=== PATIENT | male | born 1960 | race Two or more races ===

== ENCOUNTER 2023-04-30 16:44 | Observation (INO) ==
[2023-04-30] MEDS ORDERED: NS 1,000 ML IV 1,000 ML IV ONE (16:51)
--- NOTE | 2023-04-30 17:01 | DR.EXTPAIN ---
HPI Time seen Time Seen by Provider: 04/30/23 16:51 Complaint/Symptoms Chief Complaint Doctor Comments: 62-year-old male brought in for evaluation. Patient stopped at the gas station around the corner, tripped coming out and fell, hitting the back of his head. Bled initially scalp, has since stopped. Patient denies loss of consciousness. He does have a headache. He denies any neck pain or other injuries. Patient is not on blood thinning medication. Denies recent illness. Admits to drinking EtOH. Chief Complaint:: patient states he was coming out of [place] [employer] and he tripped over the concrete and hit his head. patient states he drunk x2 16oz beer about a hour ago. patient denies any pain at this time. COVID-19 Coronavirus risk:travel/contact w/high risk person: No Has patient experienced Coronavirus symptoms: No Nurses notes reviewed Nurses Notes Review: Yes Source History Provided: Patient and EMS Mode of arrival Mode of Arrival: Stretcher Timing Onset of Chief Complaint: 04/30/23 PMH PMH Past Medical History: No Past Surgical History: Yes Surgical History: Ortho Surgery Past Surgical History Comment: back Family History History of Family Medical Conditions: No Social History Does patient currently use any type of tobacco product: Yes Have you used tobacco products in the last 12 months: Yes Type of Tobacco Use: Cigarettes Does any household member use tobacco: Yes Alcohol Use: None Do you use any recreational Drugs:: No Lives With: Family Lives Where: Home Travel Risk Coronavirus risk:travel/contact w/high risk person: No Has patient experienced Coronavirus symptoms: No Infectious screening In the last 2 months have you had wt loss of >10#?: NO Have you had fever, night sweats or hemotysis?: No Have you traveled outside the country in the last 6 months?: No Isolation: Standard ROS Review of Systems Constitutional: No Symptoms Reported Eyes: No Symptoms Reported ENTM: No Symptoms Reported Respiratoy: No Symptoms Reported Cardiovascular: No Symptoms Reported Gastrointestinal/Abdominal: No Symptoms Reported Genitourinary: No Symptoms Reported Neurological: Headache Musculoskeletal: No Symptoms Reported Integumentary: No Symptoms Reported All Other Systems: Reviewed and Negative PE Vital Signs Vitals: Vital Signs Temperature 97.8 F Pulse Rate 112 Respiratory Rate 20 Blood Pressure 182/96 O2 Sat by Pulse Oximetry 99 General General Appearance: Alert and In No Apparent Distress Eyes Eye exam: PERRL and EOMI ENT ENT Exam: Mucous Membranes Moist Neck Neck Exam: Other (C-collar open, no point tenderness, c-collar reapplied) Respiratory Respiratory Exam: Normal Lung Sounds Bilat; negative Accessory Muscle Use or Respiratory Distress Cardiovascular Cardiovascular Exam: Regular Rate, Normal Rhythm and Normal Heart Sounds Abdominal Exam Abdominal Exam: Soft; negative Tenderness Extremities Extremities Exam: Normal Inspection and Full ROM; negative Edema Neurological Neurological Exam: Alert, Oriented X3 and CN II-XII Intact; negative Motor Sensory Deficit Skin Skin Exam: Warm and Dry COURSE Treatment Treatment: 62-year-old male brought in by EMS after falling at a local gas station and hitting the back of his head. Patient denies loss of conscious. Blood alcohol in the field reportedly 248. IV fluids given, will check baseline labs. Patient sent to CT for CTs of the head and cervical spine. 1836 -CTs of the head and neck acceptable. Patient without other injuries. Blood work obtained, shows he has an alcohol level of 323.. Chemistries show low sodium at 115. Does have an elevated AST of 117, ALT of 96. Patient deserves admission for his hyponatremia. We will add a chest x-ray to rule out intrathoracic abnormality. Discussed with Dr. Morales, on-call for the [facility], accepts an observation admission to further treat his hyponatremia and intoxication. ROR Labs Reviewed Laboratory Results Reviewed?: Yes 04/30/23 17:00 04/30/23 17:00 Laboratory: WBC 6.9 X10^3/uL (3.6-10.0) 04/30/23 17:00 RBC 4.19 X10^6/uL (4.7-6.0) L 04/30/23 17:00 Hgb 13.5 g/dL (13.5-18.0) 04/30/23 17:00 Hct 39.4 % (42.0-54.0) L 04/30/23 17:00 MCV 94.0 fL (80.0-100.0) 04/30/23 17:00 MCH 32.1 pg (27.0-34.0) 04/30/23 17:00 MCHC 34.2 g/dL (33.0-35.0) 04/30/23 17:00 RDW 12.9 % (11.6-16.5) 04/30/23 17:00 Plt Count 162 X10^3/uL (150.0-450.0) 04/30/23 17:00 MPV 6.0 fL (7.4-11.0) L 04/30/23 17:00 Neut % (Auto) 81.5 % (42.0-75.0) H 04/30/23 17:00 Lymph % (Auto) 10.8 % (21.0-51.0) L 04/30/23 17:00 [place] % (Auto) 6.6 % (0.0-13.0) 04/30/23 17:00 Eos % (Auto) 0.5 % (0.9-2.9) L 04/30/23 17:00 Baso % (Auto) 0.6 % (0.2-1.0) 04/30/23 17:00 Neut # (Auto) 5.6 x10^3/uL (2.2-4.8) H 04/30/23 17:00 Lymph # (Auto) 0.7 X10^3/uL (1.3-2.9) L 04/30/23 17:00 [place] # (Auto) 0.5 x10^3/uL (0.3-0.8) 04/30/23 17:00 Eos # (Auto) 0.0 x10^3/uL (0.0-0.2) 04/30/23 17:00 Baso # (Auto) 0.0 X10^3/uL (0.0-0.1) 04/30/23 17:00 Absolute Nucleated RBC 0.1 /100WBC 04/30/23 17:00 Sodium 115 mmol/L (136-145) L* 04/30/23 17:00 Corrected Sodium TNP 04/30/23 17:00 Potassium 3.2 mmol/L (3.5-5.1) L 04/30/23 17:00 Chloride 78 mmol/L (98-107) L* 04/30/23 17:00 Carbon Dioxide 23.2 mmol/L (21-32) 04/30/23 17:00 BUN 2 mg/dL (7-18) L 04/30/23 17:00 Creatinine 0.50 mg/dL (0.70-1.30) L 04/30/23 17:00 Est GFR (MDRD) Af Amer > 60 (>60) 04/30/23 17:00 Est GFR (MDRD) Non-Af > 60 (>60) 04/30/23 17:00 Glucose 94 mg/dL (65-99) 04/30/23 17:00 Calcium 7.6 mg/dL (8.5-10.1) L 04/30/23 17:00 Corrected Calcium TNP 04/30/23 17:00 Total Bilirubin 0.60 mg/dL (0.2-1.0) 04/30/23 17:00 AST 117 Units/L (15-37) H 04/30/23 17:00 ALT 98 Units/L (12-78) H 04/30/23 17:00 Alkaline Phosphatase 124 Units/L (46-116) H 04/30/23 17:00 Total Protein 6.6 g/dL (6.4-8.2) 04/30/23 17:00 Albumin 3.5 g/dL (3.4-5.0) 04/30/23 17:00 Globulin 3.1 g/dL (2.5-4.5) 04/30/23 17:00 Albumin/Globulin Ratio 1.1 Ratio (1.1-2.1) 04/30/23 17:00 Lipase 60 Units/L (16-77) 04/30/23 17:00 Ethyl Alcohol mg/dL 323 mg/dL (0-19.9) H 04/30/23 17:00 XRAY XRAY Interpreted by: Both X-ray Results: EXAM: CERVICAL SPINE W/O CON HISTORY: patient states he was coming out of [place] and he tripped over the concrete and hit his head. patient states he drunk x2 16oz beer about a hour ago. patient denies any pain at this time.; COMPARISON: None. TECHNIQUE: Axial non-contrast images of the cervical spine with coronal and sagittal reformats. Radiation dose: 335.91 mGy-cm total DLP FINDINGS: Vertebral body heights are maintained with normal alignment. Mild degenerative disc and joint changes. No fracture identified. Posterior elements are intact without jumped or perched facets. Prevertebral soft tissues are normal. Atlantoaxial articulation is intact. Soft tissues are unremarkable. Lung apices are unremarkable. IMPRESSION: No imaging findings of acute traumatic cervical spine injury. THIS IS AN ELECTRONICALLY VERIFIED FINAL REPORT 04/30/2023 6:17 PM - Electronically signed by Derick Amaya MD EXAM: HEAD CT WITHOUT INTRAVENOUS CONTRAST HISTORY: Traumatic fall and head injury. TECHNIQUE: Spiral axial CT images are obtained through the brain without the a dministration of intravenous contrast. Sagittal and coronal reformatted images are reconstructed. DOSIMETRY: Total DLP 983.34 mGycm; CTDI 48 mGy COMPARISON: None available. FINDINGS: There is mild diffuse cerebral cortical atrophy. The centrum semiovale, basal ganglia, cerebellum, and brainstem are otherwise grossly unremarkable for a noncontrast CT scan. There is no acute intracranial hemorrhage, discernible acute infarction, mass lesion, midline shift, or hydrocephalus seen. No extra-axial mass or abnormal fluid collection is seen. The calvarium is intact. There is partial fluid opacification of the right mastoid air cells in keeping with acute or chronic mastoiditis. The partially imaged paranasal sinuses, middle ear cavities, and left mastoid air cells are clear. IMPRESSION: 1. No skull fracture, intracranial hemorrhage, discernible acute infarction, mass lesions, midline shift, mass effect or hydrocephalus seen. 2. Mild diffuse cerebral cortical atrophy. 3. Partial fluid opacification of the right mastoid air cells in keeping with acute or chronic mastoiditis. THIS IS AN ELECTRONICALLY VERIFIED FINAL REPORT 04/30/2023 5:42 PM - Electronically signed by Terra Salmeron Opioid Opioid Risk Tool Age (Rogelio box if 16-45): No History of Preadolescent Sexual Abuse: No Total: 0 Total Score Risk Category: Low Risk Copyright: Zach JONES predicting aberrant behaviors Discharge Plan Diagnosis Discharge Problem: Acute hyponatremia, Acute alcoholic intoxication Discharge Plan Patient Disposition: 09 ADMITTED INPATIENT Condition: Stable Orders to Discharge Patient Discharge Orders: Transfer (Routine); Ordered 04/30/23 Ordered By: Jeffry Hazel
[2023-04-30] MEDS ORDERED: NS 1,000 ML IV 1,000 ML ONE (17:04)
[2023-04-30 17:12] LABS: BASOPHILS % (AUTO) 0.6 % (0.2-1.0); EOSINOPHILS % (AUTO) 0.5 % (0.9-2.9); HEMATOCRIT 39.4 % (42.0-54.0); HEMOGLOBIN 13.5 g/dL (13.5-18.0); LYMPHOCYTES # (AUTO) 0.7 X10^3/uL (1.3-2.9); LYMPHOCYTES % (AUTO) 10.8 % (21.0-51.0); MEAN CORPUSCULAR HEMOGLOBIN 32.1 pg (27.0-34.0); MEAN CORPUSCULAR HGB CONC 34.2 g/dL (33.0-35.0); MONOCYTES # (AUTO) 0.5 x10^3/uL (0.3-0.8); MONOCYTES % (AUTO) 6.6 % (0.0-13.0); NEUTROPHILS # (AUTO) 5.6 x10^3/uL (2.2-4.8); NEUTROPHILS % (AUTO) 81.5 % (42.0-75.0); PLATELET COUNT 162 X10^3/uL (150.0-450.0); RED BLOOD COUNT 4.19 X10^6/uL (4.7-6.0); RED CELL DISTRIBUTION WIDTH 12.9 % (11.6-16.5); WHITE BLOOD COUNT 6.9 X10^3/uL (3.6-10.0)
[2023-04-30 17:27] LABS: ALANINE AMINOTRANSFERASE 98 Units/L (12-78); ALBUMIN 3.5 g/dL (3.4-5.0); ALKALINE PHOSPHATASE 124 Units/L (46-116); ASPARTATE AMINO TRANSFERASE 117 Units/L (15-37); BLOOD UREA NITROGEN 2 mg/dL (7-18); CALCIUM 7.6 mg/dL (8.5-10.1); CARBON DIOXIDE 23.2 mmol/L (21-32); GLUCOSE 94 mg/dL (65-99); LIPASE 60 Units/L (16-77); POTASSIUM 3.2 mmol/L (3.5-5.1); TOTAL PROTEIN 6.6 g/dL (6.4-8.2); eGFR NON BLACK RACES > 60 (>60)
[2023-04-30 17:44] LABS: CHLORIDE 78 mmol/L (98-107); SODIUM 115 mmol/L (136-145)
--- NOTE | 2023-04-30 17:45 | CT ---
EXAM: HEAD CT WITHOUT INTRAVENOUS CONTRASTHISTORY: Traumatic fall and head injury.TECHNIQUE: Spiral axial CT images are obtained through the brain without the administration of intravenous contrast. Sagittal and coronal reformatted images are reconstructed.DOSIMETRY: Total DLP 983.34 mGycm; CTDI 48 mGyCOMPARISON: None available.FINDINGS:There is mild diffuse cerebral cortical atrophy. The centrum semiovale, basal ganglia, cerebellum, and brainstem are otherwise grossly unremarkable for a noncontrast CT scan.There is no acute intracranial hemorrhage, discernible acute infarction, mass lesion, midline shift, or hydrocephalus seen. No extra-axial mass or abnormal fluid collection is seen.The calvarium is intact. There is partial fluid opacification of the right mastoid air cells in keeping with acute or chronic mastoiditis. The partially imaged paranasal sinuses, middle ear cavities, and left mastoid air cells are clear.IMPRESSION:1. No skull fracture, intracranial hemorrhage, discernible acute infarction, mass lesions, midline shift, mass effect or hydrocephalus seen.2. Mild diffuse cerebral cortical atrophy.3. Partial fluid opacification of the right mastoid air cells in keeping with acute or chronic mastoiditis.THIS IS AN ELECTRONICALLY VERIFIED FINAL [id number]/30/2023 5:42 PM - Electronically signed by Terra Salmeron
[2023-04-30 17:48] LABS: BLOOD ALCOHOL 323 mg/dL (0-19.9)
--- NOTE | 2023-04-30 18:21 | CT ---
EXAM:CERVICAL SPINE W/O CONHISTORY:patient states he was coming out of [place] [employer] and he tripped over the concrete and hit his head. patient states he drunk x2 16oz beer about a hour ago. patient denies any pain at this time.;COMPARISON:None.TECHNIQUE:Axial non-contrast images of the cervical spine with coronal and sagittal reformats.Radiation dose: 335.91 mGy-cm total DLPFINDINGS:Vertebral body heights are maintained with normal alignment.Mild degenerative disc and joint changes.No fracture identified.Posterior elements are intact without jumped or perched facets.Prevertebral soft tissues are normal.Atlantoaxial articulation is intact.Soft tissues are unremarkable.Lung apices are unremarkable.IMPRESSION:No imaging findings of acute traumatic cervical spine injury.THIS IS AN ELECTRONICALLY VERIFIED FINAL [id number]/30/2023 6:17 PM - Electronically signed by Derick Amaya MD
[2023-04-30] MEDS ORDERED: CONSULT PHARMACY - POTASSIUM & MAGNESIUM XX SCH (20:13)
[2023-04-30 21:07] VITALS: BMI 23.4
[2023-04-30] MEDS: D5 NS + KCL 20 MEQ/L 1,000 ML IV SCH (21:24)
[2023-04-30] MEDS: ULTRAM PO PRN (21:25)
[2023-04-30] MEDS: K-RIDER 10 MEQ/NS 100 ML 10 MEQ/100 ML BAG IV SCH (22:31)
[2023-04-30] MEDS: MAGNESIUM SULFATE 1 GRAM/100 mL PREMIX 1 G/100 ML BAG IV SCH (23:39)
[2023-05-01] MEDS: MAGNESIUM SULFATE 1 GRAM/100 mL PREMIX 1 G/100 ML BAG IV SCH (00:27)
[2023-05-01] MEDS: K-RIDER 10 MEQ/NS 100 ML 10 MEQ/100 ML BAG IV SCH ×3 (00:43→01:31)
--- NOTE | 2023-05-01 00:43 | RAD ---
EXAM:CHEST, 1 VIEWHISTORY:hyponatremia;COMPARISON:No relevant prior studies available.TECHNIQUE:Chest radiographic imaging, AP portable projection, 1 imageFINDINGS:No cardiomegaly.No focal airspace disease.No pleural effusion.No pneumothorax.No acute osseous abnormality.IMPRESSION:No imaging findings of acute cardiopulmonary disease.THIS IS AN ELECTRONICALLY VERIFIED FINAL [id number]/01/2023 12:39 AM - Electronically signed by Derick Amaya MD
[2023-05-01] MEDS: PHENOBARBITAL TAB 30 MG (32.4MG) PO PRN ×2 (03:18→20:21)
[2023-05-01 05:12] LABS: BASOPHILS % (AUTO) 0.3 % (0.2-1.0); EOSINOPHILS % (AUTO) 0.2 % (0.9-2.9); HEMATOCRIT 39.8 % (42.0-54.0); HEMOGLOBIN 13.5 g/dL (13.5-18.0); LYMPHOCYTES # (AUTO) 0.3 X10^3/uL (1.3-2.9); LYMPHOCYTES % (AUTO) 4.1 % (21.0-51.0); MEAN CORPUSCULAR HEMOGLOBIN 32.5 pg (27.0-34.0); MEAN CORPUSCULAR VOLUME 95.4 fL (80.0-100.0); MEAN PLATELET VOLUME 6.6 fL (7.4-11.0); MONOCYTES # (AUTO) 0.6 x10^3/uL (0.3-0.8); MONOCYTES % (AUTO) 7.3 % (0.0-13.0); NEUTROPHILS # (AUTO) 6.8 x10^3/uL (2.2-4.8); NEUTROPHILS % (AUTO) 88.1 % (42.0-75.0); PLATELET COUNT 161 X10^3/uL (150.0-450.0); RED BLOOD COUNT 4.17 X10^6/uL (4.7-6.0); WHITE BLOOD COUNT 7.7 X10^3/uL (3.6-10.0)
[2023-05-01 05:19] LABS: ALANINE AMINOTRANSFERASE 82 Units/L (12-78); ALBUMIN 3.2 g/dL (3.4-5.0); ALKALINE PHOSPHATASE 118 Units/L (46-116); ASPARTATE AMINO TRANSFERASE 78 Units/L (15-37); BLOOD UREA NITROGEN 2 mg/dL (7-18); CALCIUM 7.5 mg/dL (8.5-10.1); CARBON DIOXIDE 25.2 mmol/L (21-32); CHLORIDE 92 mmol/L (98-107); COR CA(FOR HYPOALB) 8.1 mg/dL (8.5-10.1); CREATININE 0.48 mg/dL (0.70-1.30); GLUCOSE 98 mg/dL (65-99); POTASSIUM 3.6 mmol/L (3.5-5.1); SODIUM 129 mmol/L (136-145); TOTAL PROTEIN 6.3 g/dL (6.4-8.2); eGFR NON BLACK RACES > 60 (>60)
[2023-05-01] MEDS ORDERED: CONSULT PHARMACY - POTASSIUM & MAGNESIUM XX SCH (06:00)
[2023-05-01] MEDS: D5 NS + KCL 20 MEQ/L 1,000 ML IV SCH ×5 (06:06→22:12)
[2023-05-01] MEDS ORDERED: PEPCID 20 MG VIAL IVP ONE (07:35)
--- NOTE | 2023-05-01 07:35 | DR.H&P ---
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 PT HAD A HEAD INJURY WITH FALL AND CO BLEEDING TO SITE INITIALLY AND RESOLVED UPON ARRIVAL TO ER. PT WAS ETOH INTOXICATED. PT HAD CT HEAD, CXR AND C SPINE WHILE IN ER. PT WAS HYPONATREMIC ON ARRIVAL. PT ADMITTED FOR TREATMENT AND EVALUATION OF ACUTE ILLNESS. Past Surgical History Surgical History: Ortho Surgery Social History Does patient currently use any type of tobacco product: Yes Have you used tobacco products in the last 12 months: Yes Type of Tobacco Use: Cigarettes Does any household member use tobacco: Yes Alcohol Use: Heavy Drug Use: Marijuana Labs 05/01/23 04:11 05/01/23 04:11 Labs: Laboratory WBC 7.7 X10^3/uL (3.6-10.0) 05/01/23 04:11 RBC 4.17 X10^6/uL (4.7-6.0) L 05/01/23 04:11 Hgb 13.5 g/dL (13.5-18.0) 05/01/23 04:11 Hct 39.8 % (42.0-54.0) L 05/01/23 04:11 MCV 95.4 fL (80.0-100.0) 05/01/23 04:11 MCH 32.5 pg (27.0-34.0) 05/01/23 04:11 MCHC 34.0 g/dL (33.0-35.0) 05/01/23 04:11 RDW 13.0 % (11.6-16.5) 05/01/23 04:11 Plt Count 161 X10^3/uL (150.0-450.0) 05/01/23 04:11 MPV 6.6 fL (7.4-11.0) L 05/01/23 04:11 Neut % (Auto) 88.1 % (42.0-75.0) H 05/01/23 04:11 Lymph % (Auto) 4.1 % (21.0-51.0) L 05/01/23 04:11 [place] % (Auto) 7.3 % (0.0-13.0) 05/01/23 04:11 Eos % (Auto) 0.2 % (0.9-2.9) L 05/01/23 04:11 Baso % (Auto) 0.3 % (0.2-1.0) 05/01/23 04:11 Neut # (Auto) 6.8 x10^3/uL (2.2-4.8) H 05/01/23 04:11 Lymph # (Auto) 0.3 X10^3/uL (1.3-2.9) L 05/01/23 04:11 [place] # (Auto) 0.6 x10^3/uL (0.3-0.8) 05/01/23 04:11 Eos # (Auto) 0.0 x10^3/uL (0.0-0.2) 05/01/23 04:11 Baso # (Auto) 0.0 X10^3/uL (0.0-0.1) 05/01/23 04:11 Absolute Nucleated RBC 0.1 /100WBC 05/01/23 04:11 Sodium 129 mmol/L (136-145) L 05/01/23 04:11 Corrected Sodium TNP 05/01/23 04:11 Potassium 3.6 mmol/L (3.5-5.1) 05/01/23 04:11 Chloride 92 mmol/L (98-107) L 05/01/23 04:11 Carbon Dioxide 25.2 mmol/L (21-32) 05/01/23 04:11 BUN 2 mg/dL (7-18) L 05/01/23 04:11 Creatinine 0.48 mg/dL (0.70-1.30) L 05/01/23 04:11 Est GFR (MDRD) Af Amer > 60 (>60) 05/01/23 04:11 Est GFR (MDRD) Non-Af > 60 (>60) 05/01/23 04:11 Glucose 98 mg/dL (65-99) 05/01/23 04:11 POC Glucose (mg/dL) 124 mg/dL (65-99) H 05/01/23 05:57 Calcium 7.5 mg/dL (8.5-10.1) L 05/01/23 04:11 Corrected Calcium 8.1 mg/dL (8.5-10.1) L 05/01/23 04:11 Magnesium 2.0 mg/dL (2.0-2.9) 05/01/23 04:11 Total Bilirubin 1.00 mg/dL (0.2-1.0) 05/01/23 04:11 AST 78 Units/L (15-37) H 05/01/23 04:11 ALT 82 Units/L (12-78) H 05/01/23 04:11 Alkaline Phosphatase 118 Units/L (46-116) H 05/01/23 04:11 Total Protein 6.3 g/dL (6.4-8.2) L 05/01/23 04:11 Albumin 3.2 g/dL (3.4-5.0) L 05/01/23 04:11 Globulin 3.1 g/dL (2.5-4.5) 05/01/23 04:11 Albumin/Globulin Ratio 1.0 Ratio (1.1-2.1) L 05/01/23 04:11 Lipase 60 Units/L (16-77) 04/30/23 17:00 Ethyl Alcohol mg/dL 24 mg/dL (0-19.9) H 05/01/23 04:11 Review of Systems Constitutional: Weakness Eyes: No Symptoms Reported ENT: No Symptoms Reported Respiratory: No Symptoms Reported Cardiovascular: No Symptoms Reported Gastrointestinal: No Symptoms Reported Genitourinary: No Symptoms Reported Musculoskeletal: Other (NECK PAIN) Skin: Bruising Neurological: No Symptoms Reported Physical Exam Vital Signs: Vital Signs Temperature 98.3 F Temperature 98.9 F Pulse Rate [Right Brachial] 119 Pulse Rate [Right Brachial] 115 Pulse Rate [Right Brachial] 113 Pulse Rate [Right Brachial] 110 Pulse Rate [Right Brachial] 124 Pulse Rate [Right Brachial] 124 Pulse Rate [Right Brachial] 120 Respiratory Rate 19 Respiratory Rate 21 Respiratory Rate 21 Respiratory Rate 17 Respiratory Rate 21 Respiratory Rate 19 Respiratory Rate 17 Blood Pressure [Right Arm] 151/83 Blood Pressure [Right Arm] 162/94 Blood Pressure [Right Arm] 155/81 Blood Pressure [Right Arm] 143/78 Blood Pressure [Right Arm] 152/92 Blood Pressure [Right Arm] 130/79 Blood Pressure [Right Arm] 122/70 O2 Sat by Pulse Oximetry 96 O2 Sat by Pulse Oximetry 96 O2 Sat by Pulse Oximetry 96 O2 Sat by Pulse Oximetry 98 O2 Sat by Pulse Oximetry 96 O2 Sat by Pulse Oximetry 95 O2 Sat by Pulse Oximetry 97 Oriented: Normal Eyes: negative Blurred Vision, Discharge or Redness Nose: Normal Throat: Normal Respiratory: RLL Diminished and LLL Diminished Skin: Tender and Bruising Musculoskeletal: Normal Psychiatric: Anxiety Mood Description: Anxious Speech Pattern: Clear and Appropriate Assessment/Plan (1) Acute hyponatremia: Narrative Support Text: ADMIT, GENTLE IV HYDRATION WITH STRICT I&OS CARDIAC MONITORING AND BP CONTROL REPEAT AM LABS CT HEAD AND CSPINE ON ADMISSION IN ER, CXR ON ADMISSION IN ER VERIFY HOME MEDICATIONS Status: Acute (2) Acute alcoholic intoxication: Status: Acute
[2023-05-01] MEDS ORDERED: VISTARIL PO PRN (08:31)
[2023-05-01] MEDS: INDERAL TAB 10 MG PO SCH ×2 (08:45→20:20)
[2023-05-01] MEDS ORDERED: K-DUR TAB 20 MEQ PO SCH (09:00)
[2023-05-01] MEDS ORDERED: NS 100 ML IV 100 ML ONE (10:31)
[2023-05-01] MEDS: ROCEPHIN VIAL 1 GRAM 1 G in NS 100 ML IV 100 ML IV SCH (10:35)
[2023-05-01] MEDS: ULTRAM PO PRN ×2 (12:55→18:58)
[2023-05-02 00:24] VITALS: O2SAT 100
[2023-05-02] MEDS: D5 NS + KCL 20 MEQ/L 1,000 ML IV SCH ×3 (04:01→12:42)
[2023-05-02 05:26] LABS: BASOPHILS # (AUTO) 0.1 X10^3/uL (0.0-0.1); EOSINOPHILS # (AUTO) 0.1 x10^3/uL (0.0-0.2); EOSINOPHILS % (AUTO) 2.3 % (0.9-2.9); HEMOGLOBIN 13.7 g/dL (13.5-18.0); LYMPHOCYTES # (AUTO) 0.7 X10^3/uL (1.3-2.9); LYMPHOCYTES % (AUTO) 11.6 % (21.0-51.0); MEAN CORPUSCULAR HEMOGLOBIN 32.3 pg (27.0-34.0); MEAN CORPUSCULAR HGB CONC 33.5 g/dL (33.0-35.0); MEAN CORPUSCULAR VOLUME 96.3 fL (80.0-100.0); MEAN PLATELET VOLUME 7.2 fL (7.4-11.0); MONOCYTES # (AUTO) 0.8 x10^3/uL (0.3-0.8); MONOCYTES % (AUTO) 12.8 % (0.0-13.0); NEUTROPHILS # (AUTO) 4.7 x10^3/uL (2.2-4.8); NEUTROPHILS % (AUTO) 72.3 % (42.0-75.0); PLATELET COUNT 140 X10^3/uL (150.0-450.0); RED BLOOD COUNT 4.26 X10^6/uL (4.7-6.0); RED CELL DISTRIBUTION WIDTH 12.8 % (11.6-16.5); WHITE BLOOD COUNT 6.4 X10^3/uL (3.6-10.0)
[2023-05-02 05:41] LABS: ALANINE AMINOTRANSFERASE 62 Units/L (12-78); ALBUMIN 2.9 g/dL (3.4-5.0); ALKALINE PHOSPHATASE 115 Units/L (46-116); ASPARTATE AMINO TRANSFERASE 42 Units/L (15-37); BLOOD UREA NITROGEN 3 mg/dL (7-18); CALCIUM 7.7 mg/dL (8.5-10.1); CARBON DIOXIDE 24.8 mmol/L (21-32); CHLORIDE 92 mmol/L (98-107); COR CA(FOR HYPOALB) 8.6 mg/dL (8.5-10.1); COR NA(FOR HYPERGLY) 126 mmol/L (136-145); GLUCOSE 113 mg/dL (65-99); POTASSIUM 3.5 mmol/L (3.5-5.1); SODIUM 126 mmol/L (136-145); TOTAL PROTEIN 6.2 g/dL (6.4-8.2); eGFR NON BLACK RACES > 60 (>60)
[2023-05-02 05:49] LABS: BLOOD ALCOHOL < 3 mg/dL (0-19.9)
[2023-05-02] MEDS ORDERED: CONSULT PHARMACY - POTASSIUM & MAGNESIUM XX SCH (07:00)
[2023-05-02 08:13] VITALS: RESP 20
[2023-05-02] MEDS: ULTRAM PO PRN (08:13)
[2023-05-02] MEDS: ROCEPHIN VIAL 1 GRAM 1 G in NS 100 ML IV 100 ML IV SCH (08:13)
[2023-05-02] MEDS: INDERAL TAB 10 MG PO SCH (08:13)
[2023-05-02] MEDS ORDERED: K-DUR TAB 20 MEQ PO SCH (09:00)
[2023-05-02 12:30] VITALS: BP 156/86; PULSE 88; TEMP 97.7
== END 2023-05-02 13:08 | disposition left against medical advice (07) ==
LOC: ICU 16:44 → ER 16:44 → ICU 20:05
PROVIDERS: ADMIT Internal Medicine; ATTEND Internal Medicine
DX: F10.929 Alcohol use, unspecified with intoxication, unspecified; Y92.89 Other specified places as the place of occurrence of the external cause; W01.0XXA Fall on same level from slipping, tripping and stumbling without subsequent striking against object, initial encounter; R73.09 Other abnormal glucose; M54.2 Cervicalgia; R00.0 Tachycardia, unspecified; E87.1 Hypo-osmolality and hyponatremia; H70.001 Acute mastoiditis without complications, right ear; S00.00XA Unspecified superficial injury of scalp, initial encounter; R51.9 Headache, unspecified; Z72.0 Tobacco use; Z53.29 Procedure and treatment not carried out because of patient's decision for other reasons